=== PATIENT | female | born 1980 | race African-American/Black ===

== ENCOUNTER 2017-06-24 21:40 | Emergency (ER) | payer SELFPAY ==
[~2017-06-24] VITALS: Ht 162.6 cm; Wt 127.0 kg
[~2017-06-24 21:40] MED LIST: KEPP500; [UNRECOGNIZED DRUG - OTHER]
[2017-06-25] MEDS ORDERED: SODIUM CHLORIDE 0.9% 1,000 ML IV ONE (00:37)
[2017-06-25] MEDS ORDERED: ASPIRIN 81MG TABLET PO ONE (00:45)
[2017-06-25 01:11] LABS: INR 1.2
[2017-06-25 01:14] LABS: AMMONIA < 25 uMol/L (<32); BASOPHILS % 0.9 % (0.0-2.0); EOSINOPHILS % 0.4 % (0.0-5.0); HEMATOCRIT. 35.3 % (36.0-48.0); HEMOGLOBIN. 11.3 g/dL (12.0-16.0); LYMPHOCYTES % 35.8 % (20.0-50.0); MEAN CORPUSCULAR HEMOGLOBIN 25.7 pg (28.0-32.0); MEAN CORPUSCULAR VOLUME 80.1 fL (81.0-99.0); MEAN PLATELET VOLUME 8.1 fl (7.4-10.4); MONOCYTES % 7.8 % (2.0-8.0); NEUTROPHILS % 55.1 % (40.0-76.0); PLATELET 333 x1000/uL (130-400)
[2017-06-25 01:15] LABS: CHLORIDE 101 mEq/L (98-107); ETHANOL BLOOD < 10 mg/dL
[2017-06-25 01:22] LABS: HCG SCREEN NEGATIVE
[2017-06-25 01:55] LABS: CLARITY URINE CLEAR (CLEAR); COLOR URINE YELLOW (YELLOW); KETONES URINE NEGATIVE (NEGATIVE); LEUKOCYTE ESTERASE URINE 3+ (NEGATIVE); NITRITE URINE NEGATIVE (NEGATIVE); OCCULT BLOOD URINE TRACE (NEGATIVE); PROTEIN URINE NEGATIVE (NEGATIVE); SPECIFIC GRAVITY URINE 1.006 (1.005-1.030); UROBILINOGEN URINE 0.2 E.U./dL (0.2-1.0)
[2017-06-25 02:05] LABS: *AMPHETAMINES SCREEN URINE NEGATIVE (NEGATIVE); *BARBITURATES SCREEN URINE NEGATIVE (NEGATIVE); *BENZODIAZEPINES SCREEN URINE NEGATIVE (NEGATIVE); *COCAINE SCREEN URINE NEGATIVE (NEGATIVE); CANNABINOID URINE SCREEN NEGATIVE (NEGATIVE); METHADONE URINE SCREEN NEGATIVE (NEGATIVE); OPIATES URINE SCREEN NEGATIVE (NEGATIVE); PHENCYCLIDINE URINE SCREEN NEGATIVE (NEGATIVE)
[2017-06-25] MEDS ORDERED: MECLIZINE 25MG TABLET PO ONE (02:15)
[2017-06-25] MEDS ORDERED: CEFTRIAXONE 1 G PREMIX 50 ML IV NR (02:45)
[2017-06-25 06:12] VITALS: BP 146/71
== END 2017-06-25 06:14 | disposition home or self-care (01) ==
LOC: ER 21:40
DX: N39.0 Urinary tract infection, site not specified (principal); R42 Dizziness and giddiness; F41.9 Anxiety disorder, unspecified
CPT/HCPCS: 36415; 70450; 71045; 80053; 80305; 81003; 82140; 84443; 84484; 84703; 85025; 85610; 87086; 93005; 96361; 96365; 96366; 99285; G0482; J0696; J7030; Z7610; J8597

== ENCOUNTER 2021-03-21 00:26 | Emergency (ER) | payer BC, OTHER ==
[~2021-03-21] VITALS: Ht 170.2 cm; Wt 125.0 kg
[2021-03-21] MEDS ORDERED: ASPIRIN 81MG TABLET PO ONE (00:45)
[2021-03-21 01:53] LABS: BASOPHILS % 0.9 % (0.0-2.0); EOSINOPHILS % 1.4 % (0.0-5.0); HEMATOCRIT. 35.5 % (36.0-48.0); HEMOGLOBIN. 11.4 g/dL (12.0-16.0); LYMPHOCYTES % 41.4 % (20.0-50.0); MEAN CORPUSCULAR HEMOGLOBIN 25.6 pg (28.0-32.0); MEAN PLATELET VOLUME 7.6 fl (7.4-10.4); MONOCYTES % 8.3 % (2.0-8.0); PLATELET 381 x1000/uL (130-400); RED BLOOD CELL COUNT 4.44 mill/uL (4.2-5.4); RED CELL DISTRIBUTION WIDTH 15.9 % (11.6-14.6)
[2021-03-21 02:10] LABS: CHLORIDE 104 mEq/L (98-107)
[2021-03-21 02:15] LABS: ETHANOL BLOOD < 10 mg/dL
[2021-03-21 04:28] LABS: CLARITY URINE CLEAR (CLEAR); COLOR URINE YELLOW (YELLOW); KETONES URINE TRACE (NEGATIVE); LEUKOCYTE ESTERASE URINE 2+ (NEGATIVE); NITRITE URINE NEGATIVE (NEGATIVE); OCCULT BLOOD URINE NEGATIVE (NEGATIVE); PROTEIN URINE NEGATIVE (NEGATIVE); SPECIFIC GRAVITY URINE 1.029 (1.005-1.030); UROBILINOGEN URINE 0.2 E.U./dL (0.2-1.0)
[2021-03-21 04:38] LABS: *AMPHETAMINES SCREEN URINE NEGATIVE (NEGATIVE); *BARBITURATES SCREEN URINE NEGATIVE (NEGATIVE); *BENZODIAZEPINES SCREEN URINE NEGATIVE (NEGATIVE); *COCAINE SCREEN URINE NEGATIVE (NEGATIVE)
[2021-03-21 04:39] LABS: CANNABINOID URINE SCREEN NEGATIVE (NEGATIVE); METHADONE URINE SCREEN NEGATIVE (NEGATIVE); OPIATES URINE SCREEN NEGATIVE (NEGATIVE); PHENCYCLIDINE URINE SCREEN NEGATIVE (NEGATIVE)
[2021-03-21 06:10] VITALS: BP 124/74
== END 2021-03-21 06:25 | disposition home or self-care (01) ==
LOC: ER 00:26
DX: R00.2 Palpitations (principal); E66.9 Obesity, unspecified; Z68.41 Body mass index [BMI] 40.0-44.9, adult; Z88.4 Allergy status to anesthetic agent
CPT/HCPCS: 36415; 71045; 80053; 80305; 80320; 81003; 83880; 84443; 84484; 85025; 93005; 99285; G0480